=== PATIENT | female | born 1950 | race Caucasian/White ===

== ENCOUNTER 2020-10-08 15:26 | Outpatient (RCR) | payer MEDICARE, SELFPAY | END 2020-10-08 23:59 | LOC: IMMUN 15:26 | PROVIDERS: PCP Internal Medicine; Referring Provider Family Medicine; Visit Provider Family Medicine | DX: Z23 Encounter for immunization (principal) | CPT/HCPCS: 0011A; 0012A ==

== ENCOUNTER 2021-05-01 08:37 | Emergency (ER) | payer MEDICARE, SELFPAY ==
[2021-05-01 08:38] VITALS: BP 171/89; PULSE 69; RESP 14; TEMP 36.8; O2SAT 96; BMI 26.6
--- NOTE | 2021-05-01 09:02 | CT_ITS ---
STUDY: CTA HEAD AND NECK WITH CONTRAST REASON FOR EXAM: Female, 70 years old. TIA RADIATION DOSAGE (If Supplied By Facility): CTDIvol = ( 16.12 ) mGy, DLP = ( 550.58 ) mGycm TECHNIQUE: CT angiography was performed with a multi-detector CT scanner. Data acquisition was obtained from the skull base through the vertex following intravenous administration of IV 100mL [id number]-[id number]. MIP images were reconstructed from the axial data set. Post-processing of the angiographic images was performed, with multiplanar reformation and 3D reconstruction. Individualized dose optimization techniques were used for this CT. COMPARISON: No relevant priors. FINDINGS: Normal bilateral petrous carotid arteries. Normal right cavernous carotid artery with a normal supraclinoid bifurcation. Normal left cavernous carotid artery with a normal supraclinoid bifurcation. Normal right A1 segments of the anterior cerebral artery. Normal left A1 segments of the anterior cerebral artery. Normal intact anterior communicating artery (ACOM). Normal bilateral A2 segments of the anterior cerebral arteries. Normal right M1 and M2 segments of the middle cerebral arteries, with a normal M1 bifurcation. Normal left M1 and M2 segments of the middle cerebral arteries, with a normal M1 bifurcation. Normal right posterior communicating artery (PCOM). Normal left posterior communicating artery (PCOM). Normal bilateral vertebral arteries. Normal basilar artery with a normal basilar bifurcation. The visualized bilateral superior cerebellar (SCA) arteries are normal. Normal bilateral P1, P2 and visualized P3 segments of the posterior cerebral arteries. There is no demonstrated aneurysm of the [place]. There is no demonstrated abnormality of the visualized brain. AORTIC ARCH: There is a bovine origin of the great vessels arising from the aortic arch with a common origin of the brachiocephalic and left common carotid artery. Normal origin of the left subclavian artery. Normal origins of the brachiocephalic, left common carotid, and left subclavian arteries. RIGHT CAROTID ARTERIES: Normal right common carotid artery (CCA). Normal right common carotid bulb. Normal origin of the right internal carotid (ICA) artery without a hemodynamically significant stenosis. Normal visualized cervical portion of the right internal carotid artery. Normal origin of the right external carotid artery (ECA). LEFT CAROTID ARTERIES: Normal left common carotid artery (CCA). Normal left common carotid bulb. Normal origin of the left internal carotid (ICA) artery without a hemodynamically significant stenosis. Normal visualized cervical portion of the left internal carotid artery. Normal origin of the left external carotid artery (ECA). VERTEBRAL ARTERIES: Normal bilateral vertebral arteries. IMPRESSION: Normal CTA Head and neck with contrast. Electronically Signed: Bentley Bhatt MD at 10:43 EDT Tel , Service support , STUDY: CT BRAIN WITHOUT CONTRAST REASON FOR EXAM: Female, 70 years old. TIA RADIATION DOSAGE (If Supplied By Facility): CTDIvol = ( 44.99 ) mGy, DLP = ( 745.49 ) mGycm TECHNIQUE: Transaxial CT imaging of the brain was performed without administration of intravenous contrast material. Individualized dose optimization techniques were used for this CT. COMPARISON: No relevant priors. FINDINGS: Normal soft tissue structures. Normal calvarium. Normal size ventricles and extra-axial spaces for the patient''s age. Normal white matter tracts of the cerebral hemispheres. Normal basal ganglia and thalami. Normal brainstem. Normal cerebellum. There is no intracranial hemorrhage. There are no findings of an acute ischemic infarction. Normal visualized paranasal sinuses. CT/CTA Head AND Neck W/ Contrast IMPRESSION: Normal unenhanced CT scan of the brain. Electronically Signed: Bentley Bhatt MD at 10:44 EDT Tel , Service support ,
--- NOTE | 2021-05-01 09:02 | EKG12_ITS ---
Test Reason : Blood Pressure : / mmHG Vent. Rate : 068 BPM Atrial Rate : 068 BPM P-R Int : 130 ms QRS Dur : 082 ms QT Int : 394 ms P-R-T Axes : 046 034 027 degrees QTc Int : 418 ms Normal sinus rhythm Nonspecific ST abnormality Abnormal ECG Confirmed by DAKOTAH RAMOS, CIPRIANO ([id number]), news editor LULI GILL ([id number]) on 05/03/2021 8:49:11 AM Referred By: MARTINA Confirmed By:CIPRIANO CLAIRE MD
--- NOTE | 2021-05-01 09:04 | ED.VIS.STROK ---
HPI History of Present Illness Chief Complaint: Numb/Ting Informant: patient Narrative Narrative: 70-year-old female presents the emergency department with paresthesias. Patient states that last night she developed a tingling sensation over the left side of her face left arm (most pronounced in the left hand) as well as the left leg (most pronounced in the left foot). This lasted approximately a minute and resolved. She had several more episodes that lasted only a minute. This morning she states that when she got up she had a slight headache and she had her symptoms return for 1 hour. Headache has resolved. [facility] Medical History (Updated 05/01/21 @ 11:[address] Joseph Davis DO) Hypertension Hypothyroidism Allergy/AdvReac Type Severity Reaction Status Date / Time latex Allergy Hives Verified 05/01/21 08:42 metronidazole [From Flagyl] Allergy Other Verified 05/01/21 08:41 Tetanus Vaccines and Toxoid Allergy Swelling Verified 05/01/21 08:42 Social History (Updated 05/01/21 @ 09:[address] Joseph Davis DO) Smoking Status: Never smoker substance use type: does not use ROS ROS ED Constitutional Constitutional ED: Denies chills or weight loss Eyes Eyes: Denies change in vision or diplopia ENT ENT ED: Denies ear pain, rhinorrhea or sore throat Cardiovascular Cardiovascular: Denies chest pain, orthopnea, palpitations or racing heartbeat Respiratory/Chest Respiratory/Chest: Denies cough, dyspnea or orthopnea Gastrointestinal Gastrointestinal: Denies abdominal pain, diarrhea, nausea or vomiting Genitourinary Genitourinary ED: Denies dysuria, hematuria or urinary frequency Musculoskeletal Musculoskeletal: Denies arthralgias or myalgias Integumentary Denies abscess or rash Neurologic Neurologic: Reports headache(s) and paresthesias; Denies weakness Psychiatric Psychiatric: Denies anxiety, depression, suicidal ideation or suicidal thoughts Endocrine Endocrinology: Denies polydipsia, polyphagia or polyuria Allergic/Immunologic Allergic/Immunologic ED: Denies mouth swelling, tongue swelling or urticaria EXAM Physical Exam Const Vital Signs: 05/01/21 08:38 Temperature 98.2 F Temperature Source Temporal Pulse Rate 69 Respiratory Rate 14 Blood Pressure 171/89 H Blood Pressure Mean 116 Pulse Ox 96 Oxygen Delivery Method Room Air Positive well nourished and well developed General Appearance ED: well developed HEENT Reports normocephalic, head/scalp atraumatic and moist mucous membranes Eyes PERRL and EOMs intact bilaterally Neck no lymphadenopathy, supple and no JVD Resp normal respiratory effort and clear to auscultation bilaterally Cardio regular rate, regular rhythm and no murmurs GI normal to inspection, nondistended, normoactive bowel sounds and non-tender Palpation: soft Back/Spine no CVA tenderness and normal ROM Extremity normal to inspection General Extremety ED: Negative for edema General Extremity: Negative for edema Neuro oriented x3 and CN's II-XII intact bilaterally Sensorium / Orientation: alert Motor Exam: strength 5/5 throughout Psych mental status grossly normal Mood & Affect: Negative for depressed or tearful Skin no rashes or lesions noted and no wounds STROKE Vital Signs/Narrative: Vital Signs Temp Pulse Resp BP Pulse Ox 05/01/21 08:38 98.2 F 69 14 171/89 H 96 NIHSS Initial: 1a Level of Consciousness: 0 1b LOC Questions (Score 2 if aphasic/stupor): 0 1c LOC Commands (Only score 1st attempt): 0 2 Best Gaze (If aphasic, use reflexive mvmts.): 0 3 Visual: 0 4 Facial Palsy: 0 5 Motor Arm Right (UN = amputation/fusion): 0 5 Motor Arm Left: 0 6 Motor Leg Right: 0 6 Motor Leg Left: 0 7 Limb ataxia (Only + if out of proportion): 0 8 Sensory (Aphasia/stupor=0 or 1, coma=2): 0 9 Best Language: 0 10 Dysarthria (mute, coma=2, intubated=UN): 0 11 Extinction and Inattention (only scored if +): 0 Total Score: 0 MDM MDM MDM Narrative Medical decision making narrative: My interpretation of the chest x-ray is no acute process. CT of the brain and CTA of head and neck were negative. Basic blood work negative. Patient states she has had 2 brief episodes of the tingling since she has been here. I spoke with her regarding admission for TIA evaluation. We talked about why we work-up TIAs. Complicating her admission is that she is caring for her 95-year-old mother at her home. She would prefer to do that a TIA work-up as an outpatient. I think that this is reasonable given her social situation. Patient to call her doctor's office on Sunday to arrange follow-up. She understands return instructions Lab Data Attestation: I reviewed the patient's lab results. Labs: Laboratory Results - last 24 hr 05/01/21 05/01/21 08:56 08:56 WBC 7.3 RBC 4.51 Hgb 14.1 Hct 43.2 MCV 95.8 MCH 31.3 MCHC 32.6 RDW Std Deviation 47.2 H RDW Coeff of Val 13.4 Plt Count 216 MPV 11.6 Immature Gran % (Auto) 0.100 Neut % (Auto) 68.9 Lymph % (Auto) 17.9 L [place] % (Auto) 9.2 Eos % (Auto) 2.8 Baso % (Auto) 1.1 H Absolute Neuts (auto) 5.0 Absolute Lymphs (auto) 1.30 Nucleated RBC % 0 Sodium 141 Potassium 3.4 L Chloride 109 H Carbon Dioxide 28.0 Anion Gap 4 L BUN 14 Creatinine 0.83 Estim Creat Clear Calc 46.91 Est GFR (MDRD) Af Amer 87 Est GFR (MDRD) Non-Af 72 BUN/Creatinine Ratio 16.8 Glucose 103 Calcium 9.0 Magnesium 2.2 Total Bilirubin 0.30 AST 22 ALT 23 Alkaline Phosphatase 69 Total Protein 7.5 Albumin 3.6 Globulin 3.9 Albumin/Globulin Ratio 0.9 TSH 0.62 Radiography Diagnostic Testing: Radiology Impression Head/Neck CTA 05/01/21 09:02 IMPRESSION: Normal unenhanced CT scan of the brain. Electronically Signed: Bentley Bhatt MD at 10:44 EDT Tel , Service support , Discharge Plan Triage Chief Complaint: Numb/Ting ED Provider: Joseph Davis Dx/Rx/DC Orders Clinical Impression: Brain TIA Instructions: ED TIA: Transient Ischemic Attack Primary Care Provider: Val Ann Referrals: Val Ann MD [Primary Care Provider] - As soon as possible Activity Restrictions/Additional Instructions: Please begin a full 325 mg aspirin per day until you see your doctor. Disposition Disposition: Home, Self Care
[2021-05-01 09:11] LABS: Basophil# 0.08 X10^3/uL; Basophil% 1.1 % (0-1); Eosinophils% 2.8 % (0-5); Hematocrit 43.2 % (37-47); Hemoglobin 14.1 g/dL (12.0-15.0); Lymphocyte % 17.9 % (19-41); Mean Corp Hgb Conc 32.6 g/dL (32-36); Mean Corpuscular Hgb 31.3 pg (27.0-32.0); Mean Corpuscular Volume 95.8 fL (81-99); Mean Platelet Vol. 11.6 fl (6.2-12.0); Monocyte# 0.67 X10^3/uL; Monocyte% 9.2 % (0-10); NRBC Flagged by Analyzer 0 % (0-5); Neutrophil # 4.99 X10^3/uL (2.7-7.7); Neutrophil % 68.9 % (47-70); Platelet Count 216 K/mm3 (150-450); RBC Distribution Width CV 13.4 % (11.6-14.6); RBC Distribution Width SD 47.2 fl (35.1-43.9); Red Blood Count 4.51 M/mm3 (4.2-5.4); White Blood Count 7.3 K/mm3 (4.4-11.0)
[2021-05-01 09:35] LABS: ALB/GLOB Ratio 0.9 RATIO (0.9-2.4); AST(SGOT) 22 U/L (15-37); Alanine Aminotransfer ALT/SGPT 23 U/L (13-56); Albumin, Serum 3.6 g/dL (3.2-5.0); Alkaline Phosphatase 69 U/L (45-117); Anion Gap 4 (5-15); BUN 14 mg/dL (7-18); BUN/Creat Ratio 16.8 RATIO (10-20); Chloride 109 mmol/L (98-107); Creatinine, Serum 0.83 mg/dL (0.55-1.02); EST Glomerular Filtration Rate 72 mL/min (>60); Est Glom Filt Rate - Afr Amer 87 mL/min (>60); Estimated Creatinine Clearance 46.91 ml/min; Globulin 3.9 g/dL (2.2-4.2); Glucose 103 mg/dL (74-106); Magnesium 2.2 mg/dL (1.6-2.6); Potassium 3.4 mmol/L (3.5-5.1); Protein, Total 7.5 g/dL (6.4-8.2); Sodium Level 141 mmol/L (136-145); Thyroid Stim Hormone (TSH) 0.62 uIU/mL (0.358-3.74)
--- NOTE | 2021-05-01 10:20 | RAD_ITS ---
STUDY: X-RAY CHEST REASON FOR EXAM: Female, 70 years old. TIA TECHNIQUE: Single AP portable view of the chest. COMPARISON: None. FINDINGS: The lungs are clear and expanded. There is no demonstrated pleural abnormality. Normal size heart. Normal mediastinum and jenelle. Normal visualized pulmonary arteries. Normal visualized aortic arch and descending thoracic aorta. Normal visualized thoracic spine. Normal visualized ribs, clavicles, and shoulders. There is no demonstrated abnormality of the visualized soft tissue structures of the upper abdomen. RAD/Chest 1 View (Portable) IMPRESSION: Normal x-ray examination of the chest. Electronically Signed: Bentley Bhatt MD at 11:12 EDT Tel , Service support ,
[2021-05-01 10:56] VITALS: BP 166/79
[2021-05-01 11:19] VITALS: BP 177/69; PULSE 79; RESP 16; O2SAT 98
== END 2021-05-01 11:19 | disposition home or self-care (01) ==
PROVIDERS: Emergency Provider Emergency Medicine; PCP Internal Medicine
DX: G45.9 Transient cerebral ischemic attack, unspecified (principal)
CPT/HCPCS: 70496; 70498; 71045; 80053; 83735; 84443; 85025; 93005; 99285; Q9967; A4216

== ENCOUNTER → 2023-10-22 | Outpatient (CLI) | payer MEDICARE, SELFPAY ==
--- NOTE | 2023-10-22 15:34 | MRI_ITS ---
EXAM: MR HEAD WITHOUT AND WITH INTRAVENOUS CONTRAST, INTERNAL AUDITORY CANAL PROTOCOL CLINICAL INDICATION: ASYMMETRIC LEFT HEARING LOSS TECHNIQUE: Multiplanar and multisequence MR images of the internal auditory canal were obtained without and with intravenous contrast. CONTRAST: IV 13cc clariscan COMPARISON: CT angiogram head and neck, 05/01/2021. FINDINGS: CRANIAL NERVES: No significant abnormality. No mass. No abnormal enhancement. The 7th and 8th nerve complexes appear normal. No mass along the 7th and 8th nerves and no evidence of pathologic enhancement of the nerves. COCHLEA AND SEMICIRCULAR CANALS: No significant abnormality. Normal alignment in signal. No pathologic intralabyrinthine enhancement. CEREBELLOPONTINE ANGLES: No significant abnormality. No mass. BRAIN AND EXTRA-AXIAL SPACES: There is no restricted diffusion in the brain parenchyma to indicate recent infarct or other pathology. Periventricular and subcortical T2 and T2 FLAIR hyperintense foci are nonspecific although most commonly due to chronic microvascular ischemic changes in a patient of this age. No intra- or extra-axial hemorrhage. No intracranial mass or mass effect. Posterior fossa structures are unremarkable. No hydrocephalus. Basal cisterns are patent. There is no pathologic intracranial enhancement. BONES/JOINTS: No significant abnormality. No discrete lytic or blastic abnormalities. SINUSES: Normal as visualized. Clear. MASTOID AIR CELLS: Normal as visualized. Clear. ORBITS: Bilateral ocular lens extraction presumptively for the treatment of cataracts. Otherwise, no acute orbital pathology. MRI/Brain W/WO Contrast IMPRESSION: No evidence of retrocochlear pathology. Chronic microvascular ischemic changes. No evidence of acute infarct or other acute intracranial pathology. Electronically Signed: Param Meyer DO at 0:11 EST ,
[2023-10-22 16:06] LABS: CREATININE FINGERSTICK 1.1 mg/dL (0.55-1.02)
== END | disposition home or self-care (01) ==
PROVIDERS: PCP Internal Medicine; Referring Provider Otolaryngology; Visit Provider Otolaryngology
DX: H90.3 Sensorineural hearing loss, bilateral (principal)
CPT/HCPCS: 70553; A9575